=== PATIENT | male | born 2000 | race Caucasian/White ===

== ENCOUNTER 2019-05-21 03:27 | Emergency (ER) | payer OTHER ==
[~2019-05-21] VITALS: Ht 180.3 cm; Wt 93.7 kg
[2019-05-21 03:28] VITALS: BP 137/66
[2019-05-21] MEDS ORDERED: HM V4000 PO (03:36)
--- NOTE | 2019-05-22 07:30 | REP ---
RIGHT HAND SERIES, FOUR VIEWS: Four views of the right hand performed. Old healed fracture is noted of the distal aspect of the 5th metacarpal. There is no evidence of acute fracture or dislocation. Joint spaces are unremarkable. IMPRESSION: No acute fracture or dislocation. Old healed fracture distal 5th metacarpal. Electronically Signed by Nik Adames MD 05/22/2019 12:00 P
== END 2019-05-21 04:27 | disposition home or self-care (01) ==
LOC: M ED 03:27
DX: S60.221A Contusion of right hand, initial encounter (principal); W22.09XA Striking against other stationary object, initial encounter; Y92.019 Unspecified place in single-family (private) house as the place of occurrence of the external cause; Z87.81 Personal history of (healed) traumatic fracture; Z79.899 Other long term (current) drug therapy

== ENCOUNTER 2020-11-26 20:40 | Emergency (ER) | payer OTHER ==
[~2020-11-26] VITALS: Ht 177.8 cm; Wt 102.8 kg
[2020-11-26 20:40] VITALS: BP 171/98
[~2020-11-26 20:40] MED LIST: HM V4000 PO
== END 2020-11-26 23:42 | disposition left against medical advice (07) ==
LOC: M ED 20:40
DX: Z53.21 Procedure and treatment not carried out due to patient leaving prior to being seen by health care provider (principal)